=== PATIENT | male | born 1960 | race Two or more races ===

== ENCOUNTER 2019-10-29 19:47 | Emergency (ER) | payer OTHER ==
[~2019-10-29] VITALS: Ht 167.6 cm; Wt 95.3 kg
[~2019-10-29 19:47] MED LIST: HYPERTENSION MED; INSULIN
[2019-10-29] MEDS ORDERED: ATROPINE SULF 1 MG/10ml SYR IV ONE (19:48)
[2019-10-29] MEDS ORDERED: SODIUM BICARBONATE 8.4% INJ 50ML SYRINGE IV ONE ×2 (19:48)
[2019-10-29] MEDS ORDERED: DEXTROSE (50%) 50ML SYRG IV ONE (19:48)
[2019-10-29] MEDS ORDERED: EPINEPHrine HCL 1 MG/10 ML SYRG IV ONE ×3 (19:48)
[2019-10-29] MEDS ORDERED: AMIODARONE HCL (50 MG/ ML) 3 ML VIAL IV ONE (19:48)
[2019-10-29] MEDS ORDERED: CALCIUM CHLOR(10%) 100MG/ML 10ML SYRINGE IV ONE ×2 (19:48)
[2019-10-29 21:23] LABS: Eosinophils # (auto) 0 10 ^3/uL (0-0.8); Monocytes # (auto) 2.6 10 ^3/uL (0-1.3); Nucleated Red Blood Cells % 0.2 %
[2019-10-29 21:25] LABS: Basophils # (auto) 0.2 10 ^3/uL (0-0.2); Basophils % (auto) 0.8 % (0.0-2.0); Hematocrit 23.6 % (41.0-53.0); Hemoglobin 7.5 g/dL (13.5-17.5); Lymphocytes % (auto) 17.4 % (10.0-50.0); Monocytes % (auto) 11.4 % (0.0-12.0); Neutrophils # (auto) 16.2 10 ^3/uL (1.6-8.6); Neutrophils % (auto) 70.4 % (37.0-80.0); Platelet Count (auto) 181 10^3/uL (140-450); Red Blood Cells 2.51 10^6/uL (4.5-5.90); Red Cell Distribution Width 16.4 % (11.8-14.3)
[2019-10-29] MEDS ORDERED: SODIUM CHLORIDE 0.9% 1,000 ML IV ONE ×3 (21:30→23:00)
[2019-10-29 21:33] LABS: INR 1.42 (0.9-1.15); Partial Thromboplastin Time 23.8 sec (23.0-31.2)
[2019-10-29 21:36] LABS: Albumin 2.8 g/dL (3.4-5.0); Calcium 8.4 mg/dL (8.5-10.1); Potassium 4.9 mmol/L (3.5-5.1)
[2019-10-29] MEDS ORDERED: PANTOPRAZOLE 40 MG/10 ML VIAL INJ IV ONE (21:45)
[2019-10-29] MEDS ORDERED: PANTOPRAZOLE 40mg/50ML NS AE 50 ML IV ONE (21:45)
[2019-10-29] MEDS ORDERED: VANCOMYCIN 1GM/250ML 250 ML IV ONE (21:45)
[2019-10-29 21:51] LABS: BUN/Creatinine Ratio 44.2; Bilirubin, Total 1.2 mg/dL (0.2-1.0); Total Protein 6.5 g/dL (6.4-8.2)
[2019-10-29] MEDS ORDERED: PIPERACILLIN-TAZOB 3.375GM 100 ML IV ONE (23:00)
[2019-10-29 23:53] VITALS: BP 81/47
[2019-10-30 00:11] LABS: Salicylate < 1.7 mg/dL (2.8-20.0)
[2019-10-30] MEDS ORDERED: SODIUM CHLORIDE 0.9% 1,000 ML IV SCH (00:12)
[2019-10-30 00:13] LABS: Acetaminophen < 2.0 ug/mL (10-30)
[2019-10-30 00:13] LABS: Lactic Acid w/Reflex 12.1 mmol/L (0.4-2.0)
[2019-10-30 00:14] VITALS: BP 94/46
[2019-10-30] MEDS ORDERED: ACETAMINOPHEN 325 MG TAB PO PRN (00:15)
[2019-10-30] MEDS ORDERED: MORPHINE SULF INJ 2 MG/ML SYRINGE 1ML IV PRN (00:15)
[2019-10-30] MEDS ORDERED: NITROGLYCERIN 0.4 MG SL TAB SL PRN (00:15)
[2019-10-30] MEDS ORDERED: ONDANSETRON HCL 4 MG/2 ML VIAL IV PRN (00:15)
[2019-10-30] MEDS ORDERED: ENOXAPARIN SOD 100 MG/1 ML SYRINGE SC SCH (01:00)
[2019-10-30] MEDS ORDERED: NOREPINEPHRINE 8 MG/250ML KIT 250 ML IV SCH (01:32)
[2019-10-30 02:32] VITALS: BP 89/48
[2019-10-30 04:27] LABS: Hematocrit 25.6 % (41.0-53.0); Hemoglobin 8.2 g/dL (13.5-17.5)
[2019-10-30 08:17] LABS: Hemoglobin 8.3 g/dL (13.5-17.5)
[2019-10-30 08:21] LABS: Hematocrit 26.5 % (41.0-53.0)
[2019-10-30] MEDS ORDERED: SODIUM BICARBONATE 8.4 % INJ 50ML VIAL IV ONE (08:45)
[2019-10-30 09:00] VITALS: BP 74/42
[2019-10-30] MEDS ORDERED: FUROSEMIDE 40 MG/4 ML VIAL IV ONE (09:00)
[2019-10-30] MEDS ORDERED: LORazepam 2MG/ML-1ML VIAL ONE (09:16)
[2019-10-30] MEDS ORDERED: EPINEPHrine HCL 1 MG/10 ML SYRG ONE (09:26)
[2019-10-30] MEDS ORDERED: SODIUM BICARBONATE 8.4% INJ 50ML SYRINGE ONE (09:29)
[2019-10-30] MEDS ORDERED: CLOPIDOGREL BISULFATE 75 MG TAB PO SCH (10:00)
[2019-10-30] MEDS ORDERED: DOCUSATE SOD 100 MG CAP PO SCH (10:00)
[2019-10-30] MEDS ORDERED: ASPirin 81 mg TAB PO SCH (10:00)
[2019-10-30] MEDS ORDERED: LISINOPRIL 10 MG TAB PO SCH (10:00)
[2019-10-30] MEDS ORDERED: CARVEDILOL 3.125 MG TAB PO SCH (10:00)
[2019-10-30 10:24] LABS: Albumin 2.5 g/dL (3.4-5.0); Magnesium 3.3 mg/dL (1.6-2.6); Potassium 5.3 mmol/L (3.5-5.1)
[2019-10-30 10:29] LABS: BUN/Creatinine Ratio 37.9; Bilirubin, Total 1.4 mg/dL (0.2-1.0); Total Protein 5.9 g/dL (6.4-8.2)
[2019-10-30] MEDS ORDERED: ATORVASTATIN 20 MG TAB PO SCH (22:00)
== END 2019-10-30 15:44 | disposition expired ==
LOC: ER 19:47
DX: A41.9 Sepsis, unspecified organism (principal); K92.2 Gastrointestinal hemorrhage, unspecified; I21.9 Acute myocardial infarction, unspecified; I10 Essential (primary) hypertension; E11.9 Type 2 diabetes mellitus without complications; Z20.828 Contact with and (suspected) exposure to other viral communicable diseases
CPT/HCPCS: 31500; 36415; 36430; 36600; 71045; 74176; 80053; 80320; 80329; 82805; 82962; 83605; 83735; 83880; 84484; 85014; 85018; 85025; 85610; 85730; 86850; 86900; 86901; 86920; 87040; 87426; 92950; 93005; 96365; 96366; 96368; 96375; 99285; C9113; J0171; J0282; J2060; J2543; J3370; J7042; P9016